=== PATIENT | male | born 1945 | race Caucasian/White ===

== ENCOUNTER 2016-08-02 06:40 | Day surgery (SDC) | payer MEDICARE ==
[2016-08-02] MEDS ORDERED: Lactated Ringers 1,000 ML IV SCH (07:30)
[2016-08-02] MEDS ORDERED: Ketamine 500 mg/10 ML MDV IV ONE (08:00)
[2016-08-02] MEDS ORDERED: Phenylephrine 0.5% Nasal Spray 15 ML Bot NAS ONE (08:00)
[2016-08-02] MEDS ORDERED: Midazolam 1 MG/ML 2 ML SDV IV ONE (08:00)
[2016-08-02] MEDS ORDERED: Propofol 200 MG/20 ML SDV IV ONE (08:00)
--- NOTE | 2016-08-02 09:05 | PCM.HPR ---
H & P Addendum review - H & P Addendum Review Date of Original H & P: 07/22/15 Date Reviewed: 08/02/16 Time Reviewed: 08:00 Patient was examined: No Changes (Ok toproceed with colonoscopy)
--- NOTE | 2016-08-02 09:12 | PCM.OPNOTE ---
- General Post-Op/Procedure Note Date of Surgery/Procedure: 08/02/16 Operative Procedure(s): Colonoscopy with polypectomy Findings: 3 polyps Pre Op Diagnosis: Hx Colon Polyps Post-Op Diagnosis: same Anesthesia Technique: MAC Primary Surgeon: Gunnar Stein Anesthesia Provider: Geoff Betancourt Pathology: 3 polyps EBL in mLs: 0 Complications: None Condition: Good
[2016-08-02 10:44] VITALS: BP 118/60
--- NOTE | 2016-08-02 15:43 | OR ---
DATE OF OPERATION: 08/02/2016 SURGEON: Gunnar Stein MD PREOPERATIVE DIAGNOSIS: History of colon polyps. POSTOPERATIVE DIAGNOSIS: Colon polyps. PROCEDURE PERFORMED: Colonoscopy with polypectomy. ANESTHESIA: MAC. DESCRIPTION OF PROCEDURE: The patient was brought to the procedure room, where he was placed on his left side, and IV sedation administered. Digital rectal exam was performed, which was normal. The colonoscope was inserted and advanced to the level of the proximal ascending colon. I believe I could see the ileocecal valve, but despite putting pressure on the abdomen, I was unable to get into the cecum. Up to that point, surfaces were well visualized and prep was good. Upon withdrawing the scope, there was a 6-mm sessile polyp located at the hepatic flexure, removed with the cautery snare, and retrieved in the polyp trap. There was an 8-mm sessile polyp in the proximal transverse colon that was removed with the cautery snare and retrieved in the polyp trap. The remaining transverse colon was normal. In the descending colon was a 7-mm sessile polyp that was removed with cautery snare and retrieved in the polyp trap. The remaining sigmoid colon and rectum were normal. Retroflexion was normal. Air was removed and the scope withdrawn. The patient tolerated the procedure well and returned to recovery in stable condition. The patient will be contacted with the pathology report when it returns. If polyps are adenomatous, he should undergo a repeat colonoscopy again in 3 years. Otherwise, he should undergo routine colonoscopy again in 5 years. /[id number] SKIP/MARY
== END 2016-08-02 10:21 | disposition home or self-care (01) ==
LOC: FB.SDS 06:40
PROVIDERS: ATTEND Surgery
DX: Z12.11 Encounter for screening for malignant neoplasm of colon (principal); D12.3 Benign neoplasm of transverse colon; D12.4 Benign neoplasm of descending colon; I25.10 Atherosclerotic heart disease of native coronary artery without angina pectoris; E11.21 Type 2 diabetes mellitus with diabetic nephropathy; E78.5 Hyperlipidemia, unspecified; Z88.8 Allergy status to other drugs, medicaments and biological substances; Z91.011 Allergy to milk products; E66.01 Morbid (severe) obesity due to excess calories; Z68.43 Body mass index [BMI] 50.0-59.9, adult; E11.22 Type 2 diabetes mellitus with diabetic chronic kidney disease; I12.9 Hypertensive chronic kidney disease with stage 1 through stage 4 chronic kidney disease, or unspecified chronic kidney disease; N18.9 Chronic kidney disease, unspecified
CPT/HCPCS: 00810; 45385; 82962; 88305; 93005; A9270; J2250; J2704; J7120

== ENCOUNTER 2016-12-27 15:38 | Emergency (ER) | payer MEDICARE ==
[2016-12-27] MEDS ORDERED: Iopamidol 755 MG/ML 150 ML Bottle IV ONE (17:43)
[2016-12-27] MEDS ORDERED: Sodium Chloride 0.9% 10 ML Syringe FLUSH PRN (18:08)
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
[2016-12-27 19:20] VITALS: BP 148/84
--- NOTE | 2016-12-28 16:21 | CT ---
INDICATION: Left sided abdominal pain x3 days. CT ABDOMEN AND PELVIS WITH CONTRAST: Spiral 2.5-mm axial sections were obtained through the abdomen and pelvis with 150 mL Isovue-370 at approximately 2 mL per second. Examination was repeated after [address] urogram. Total Exam DLP = 2515.36 mGy-cm. The lower lung parker and pleural spaces visualized appeared normal. Multiple calculi are noted in the gallbladder. The largest measured approximately 3.2 cm and had a calcified rim. The gallbladder did not appear to be distended, but did measure 11 cm in diameter, which makes it difficult to entirely exclude cholecystitis. This should be correlated clinically, therefore. The common bile duct did not appear to be enlarged. The pancreas is fatty replaced in the area of the head, especially. Mild renal cortical scarring is suggested. Multiple small low density lesions are noted in the kidneys, likely representing cystic structures. They are relatively indeterminate, however, and follow-up may be warranted depending upon clinical correlation. Calcifications are noted in the abdominal aorta, iliac, and femoral arteries. The prostate did not appear to be enlarged. There is a calcification in the prostate. No specific bladder abnormality was identified. No evidence of bowel obstruction was seen. The appendix appeared normal, visualized on axial image #146 of the first set of images. No additional mass lesions, organomegaly, or free fluid collections were identified in the abdomen or pelvis. A tiny umbilical hernia is noted, which includes only fat. The spleen and adrenal glands appeared unremarkable. Coronary artery calcifications are noted. The heart is not enlarged. IMPRESSION: 1. Cholelithiasis with 11-cm gallbladder, making it difficult to exclude cholecystitis. 2. ASD. 3. Renal cortical scarring of mild degree, with multiple low density renal nodular masses of small size, mostly indeterminate, but likely cystic. 4. Tiny umbilical hernia, including only fat. 5. Degenerative changes and multiple areas of disk disease and fusion in the thoracolumbosacral spine with reversal of the normal lumbar lordosis. 6. Degenerative changes are also noted at the sacroiliac joints. CT PELVIS: Examination of the pelvis was obtained and revealed no evidence of bowel obstruction, mass lesions, or free fluid collections. Degenerative changes are noted at the lumbosacral spine. Arterial calcifications are noted. Report was called to Dr. Mason at 1815 hours, 12/27/2016. [facility]
== END 2016-12-27 19:19 | disposition home or self-care (01) ==
LOC: FB.ED 15:38
DX: K82.9 Disease of gallbladder, unspecified (principal); E11.9 Type 2 diabetes mellitus without complications; E66.9 Obesity, unspecified; Z68.43 Body mass index [BMI] 50.0-59.9, adult; Z91.011 Allergy to milk products; Z79.84 Long term (current) use of oral hypoglycemic drugs; Z79.899 Other long term (current) drug therapy; E78.00 Pure hypercholesterolemia, unspecified; Z95.5 Presence of coronary angioplasty implant and graft
CPT/HCPCS: 36415; 74177; 80048; 82150; 85025; 85610; 99284; J7050; Q9967; 99282